=== PATIENT | male | born 1995 | race Caucasian/White ===

== ENCOUNTER 2016-11-28 15:43 | Emergency (ER) | payer SELFPAY ==
[~2016-11-28] VITALS: Ht 180.3 cm; Wt 59.0 kg
[2016-11-28 15:47] VITALS: BP 129/71; PULSE 128; RESP 20; TEMP 98.2; O2SAT 97
--- NOTE | 2016-11-28 16:34 | PD ---
Physical Exam Date Seen by Provider: November 28, 2016 Time Seen by Provider: 16:31 Narrative Pt presents with low back pain on the left, dark urine. Low back pain for 6 months but is concerned about the urine color. No sexual activity. VSS, awaiting bed placement. Pt denies any illicit drug use. Reports anxiety. Data Data Last Documented VS Vital Signs Date Time Temp Pulse Resp B/P Pulse Ox O2 Delivery O2 Flow Rate FiO2 11/28/16 15:47 98.2 128 20 129/71 97 Room Air [facility] Supervised Visit with JAYDA: Bhavana Andrade November 28, 2016 16:34
--- NOTE | 2016-11-28 16:49 | PD ---
HPI Chief Complaint: Flank/Kidney Pain Time Seen by Provider: 16:49 Travel History International Travel<30 days: No Contact w/Intl Traveler<30days: No Traveled to known affect area: No History of Present Illness HPI 21-year-old male presents to the emergency department for evaluation of flank pain and darkened urine. Patient states he noticed this about a week ago. Is concerned she may have a kidney infection. Patient denies any fever or chills. No nausea or vomiting. No penile discharge. No hematuria. Patient states he is not currently sexually active. He has no other symptoms to report. [facility] Past Medical History Medical History: Denies Significant Hx Social History Alcohol Use: No Tobacco Use: No Substance Use: No Allergies-Medications (Allergen,Severity, Reaction): Coded Allergies: No Known Allergies (Unverified , 11/28/16) Reported Meds & Prescriptions Reported Meds & Active Scripts Active Doxycycline Hyclate 100 Mg Cap 100 Mg PO BID Review of Systems Except as stated in HPI: all other systems reviewed are Neg Physical Exam Narrative GENERAL: Well-nourished male patient, ambulatory no acute distress SKIN: Focused skin assessment warm/dry. HEAD: Atraumatic. Normocephalic. EYES: Pupils equal and round. No scleral icterus. No injection or drainage. ENT: No nasal bleeding or discharge. Mucous membranes pink and moist. NECK: Trachea midline. No JVD. CARDIOVASCULAR: Regular rate and rhythm. No murmur appreciated. RESPIRATORY: No accessory muscle use. Clear to auscultation. Breath sounds equal bilaterally. GASTROINTESTINAL: Abdomen soft, non-tender, nondistended. Hepatic and splenic margins not palpable. GENITOURINARY: Circumcised. Testes descended bilaterally without evidence of rotation. The left testicle is slightly larger than the right. The epididymis of the left testicle is thickened and ropey and tender to palpate. No lesions or erythema. No urethral discharge. MUSCULOSKELETAL: No obvious deformities. No clubbing. No cyanosis. No edema. NEUROLOGICAL: Awake and alert. No obvious cranial nerve deficits. Motor grossly within normal limits. Normal speech. PSYCHIATRIC: Appropriate mood and affect; insight and judgment normal. Data Data Last Documented VS Vital Signs Date Time Temp Pulse Resp B/P Pulse Ox O2 Delivery O2 Flow Rate FiO2 11/28/16 18:25 76 16 119/63 100 11/28/16 15:47 98.2 Room Air Orders Iv Access Insert/Monitor (11/28/16 16:49) Complete Blood Count With Diff (11/28/16 16:49) Basic Metabolic Panel (Bmp) (11/28/16 16:49) Urinalysis - C+S If Indicated (11/28/16 16:49) Creatine Kinase (Cpk) (11/28/16 16:49) Sodium Chlor 0.9% 1000 Ml Inj (Ns 1000 M (11/28/16 17:00) Labs Laboratory Tests Test 11/28/16 11/28/16 16:55 17:30 White Blood Count 7.1 TH/MM3 Red Blood Count 5.30 MIL/MM3 Hemoglobin 16.7 GM/DL Hematocrit 48.5 % Mean Corpuscular Volume 91.6 FL Mean Corpuscular Hemoglobin 31.5 PG Mean Corpuscular Hemoglobin 34.4 % Concent Red Cell Distribution Width 12.6 % Platelet Count 173 TH/MM3 Mean Platelet Volume 8.4 FL Neutrophils (%) (Auto) 55.0 % Lymphocytes (%) (Auto) 28.8 % Monocytes (%) (Auto) 13.8 % Eosinophils (%) (Auto) 1.9 % Basophils (%) (Auto) 0.5 % Neutrophils # (Auto) 3.9 TH/MM3 Lymphocytes # (Auto) 2.1 TH/MM3 Monocytes # (Auto) 1.0 TH/MM3 Eosinophils # (Auto) 0.1 TH/MM3 Basophils # (Auto) 0.0 TH/MM3 CBC Comment DIFF FINAL Differential Comment Sodium Level 140 MEQ/L Potassium Level 3.7 MEQ/L Chloride Level 104 MEQ/L Carbon Dioxide Level 30.1 MEQ/L Anion Gap 6 MEQ/L Blood Urea Nitrogen 9 MG/DL Creatinine 1.09 MG/DL Estimat Glomerular Filtration 85 ML/MIN Rate Random Glucose 71 MG/DL Calcium Level 9.2 MG/DL Total Creatine Kinase 83 U/L Urine Color YELLOW Urine Turbidity CLEAR Urine pH 6.5 Urine Specific [place] 1.032 Urine Protein 300 mg/dL Urine Glucose (UA) NEG mg/dL Urine Ketones TRACE mg/dL Urine Occult Blood NEG Urine Nitrite NEG Urine Bilirubin NEG Urine Urobilinogen 4.0 MG/DL Urine Leukocyte Esterase NEG Urine RBC 7 /hpf Urine WBC 4 /hpf Urine Squamous Epithelial <1 /hpf Cells Urine Calcium Oxalate Crystals RARE /hpf Urine Hyaline Casts 3 /lpf Urine Mucus FEW /lpf Microscopic Urinalysis Comment CULT NOT INDICATED MDM Medical Decision Making Medical Screen Exam Complete: Yes Emergency Medical Condition: Yes Medical Record Reviewed: Yes Differential Diagnosis UTI versus STD versus renal calculi Narrative Course 21-year-old male presents to the emergency department for evaluation. Patient appears without distress. CBC and BMP are without acute concern. Urinalysis is 300 proteinuria, trace ketones, 4.0 urobilinogen, 7 RBC, rare oxalate crystal , few mucus. Culture is not indicated. Total CK is 83. Patient is given a liter normal saline fluid. Prior to discharge, patient reports me that his left testicle has been larger than his right over the last year. Intermittent pain. Patient does have a ropy, tender epididymis on the left testicle. I will start him doxycycline for treatment of this and encouraged follow-up with primary care provider. He agrees to return immediately with any acute worsening symptoms. Diagnosis Primary Impression: Flank pain Additional Impressions: Urinary frequency Urticarial rash Epididymitis Referrals: Primary Care Physician Urologist Patient Instructions: Flank Pain (ED), General Instructions Additional Instructions: Maintain adequate oral hydration Follow-up with a primary care provider Seek urology evaluation for your intermittent testicular discomfort Return immediately with any acute worsening of symptoms Med/Other Pt SpecificInfo: Prescription(s) given, No Change to Meds Scripts Doxycycline Hyclate 100 Mg Bml907 Mg PO BID #28 CAP Ref 0 Prov:Francia Allen 11/28/16 Disposition: 01 DISCHARGE HOME Condition: Stable Francia Allen November 28, 2016 16:49
[2016-11-28] MEDS ORDERED: SODIUM CHLOR 0.9% 1000 ML INJ 1,000 ML IV ONE (17:00)
[2016-11-28 17:19] LABS: AUTOMATED NEUTROPHIL # 3.9 TH/MM3 (1.8-7.7); BASOPHIL % 0.5 % (0.0-2.0); EOSINOPHIL # 0.1 TH/MM3 (0-0.4); EOSINOPHIL % 1.9 % (0.0-4.0); HEMATOCRIT 48.5 % (39.0-51.0); HEMO FLAGS DIFF FINAL; LYMPH % 28.8 % (9.0-44.0); LYMPHOCYTE # 2.1 TH/MM3 (1.0-4.8); MEAN CELL VOLUME 91.6 FL (80.0-100.0); MEAN CORPUSCULAR HEMOGLOBIN 31.5 PG (27.0-34.0); MEAN CORPUSCULAR HGB CONC 34.4 % (32.0-36.0); MONO % 13.8 % (0.0-8.0); PLATELET COUNT 173 TH/MM3 (150-450); RED CELL DISTRIBUTION WIDTH 12.6 % (11.6-17.2); WHITE BLOOD COUNT 7.1 TH/MM3 (4.0-11.0)
[2016-11-28 17:33] LABS: BICARBONATE 30.1 MEQ/L (21.0-32.0); POTASSIUM 3.7 MEQ/L (3.5-5.1)
[2016-11-28 17:43] LABS: BLOOD, URINE NEG (NEG); CALCIUM OXALATE CRYSTALS,URINE RARE /hpf; COMMENT (UR) CULT NOT INDICATED; CULTURE IF INDICATED CULT NOT INDICATED; GLUCOSE,URINE NEG (NEG); HYALINE CAST, URINE 3 /lpf (RARE); KETONE, URINE TRACE mg/dL (NEG); MUCUS URINE FEW /lpf (OCC); NITRITE,URINE NEG (NEG); PH, URINE 6.5 (5.0-8.5); SQUAMOUS EPITHELIAL CELL URINE <1 /hpf (0-5); URINE COLOR YELLOW (YELLW/STRAW)
[2016-11-28] MEDS ORDERED: DOXY100C PO (18:19)
[2016-11-28 18:25] VITALS: BP 119/63
== END 2016-11-28 18:27 | disposition home or self-care (01) ==
LOC: NEPD 15:43
DX: R10.9 Unspecified abdominal pain (principal); R35.0 Frequency of micturition; R21 Rash and other nonspecific skin eruption; L50.9 Urticaria, unspecified; N45.1 Epididymitis
CPT/HCPCS: 80048; 81001; 82550; 85025; 96360; 99284; J7030